=== PATIENT | male | born 1960 | race Hispanic/Latino ===

== ENCOUNTER 2023-10-21 21:40 | Inpatient (IN) | payer MEDICARE ==
[~2023-10-21] VITALS: Ht 175.3 cm; Wt 108.0 kg
[~2023-10-21 21:40] MED LIST: FLOMAX0.4 MG PO; LISINOPRIL10 MG PO
[2023-10-21 22:35] LABS: BASOPHILS % 0.4 % (0.0-1.0); EOSINOPHILS # (AUTO) 0.2 (0.0-0.4); EOSINOPHILS % 1.9 % (0.0-6.0); HEMATOCRIT 42.2 % (38.2-49.6); HEMOGLOBIN 13.8 g/dL (14.0-18.0); LYMPHOCYTES # (AUTO) 3.3 (1.0-3.2); LYMPHOCYTES % 35.7 % (18.0-39.1); MEAN CORPUSCULAR HEMOGLOBIN 28.6 pg (28-32); MEAN CORPUSCULAR HGB CONC 32.7 g/dL (31-35); MEAN CORPUSCULAR VOLUME 87.6 fL (81-99); MONOCYTES # (AUTO) 0.6 (0.2-0.8); MONOCYTES % 6.4 % (4.4-11.3); NEUTROPHILS # (AUTO) 5.1 (2.1-6.9); NEUTROPHILS % 55.3 % (38.7-80.0); PLATELET COUNT 242 x10e3/uL (140-360); RED BLOOD COUNT 4.82 x10e6/uL (4.3-5.7); RED CELL DISTRIBUTION WIDTH 14.1 % (11.7-14.4); WHITE BLOOD COUNT 9.28 x10e3/uL (4.8-10.8)
[2023-10-21] MEDS: ONDANSETRON HCL INJ 2MG/ML 2ML 2 MG/ML VIAL IV PRN (22:36)
[2023-10-21] MEDS: SODIUM CHLORIDE 0.9% 1000ML 1,000 ML IV SCH (22:37)
[2023-10-21] MEDS: Morphine 4mg INJECTION 4 MG/ML INJ IV PRN (22:37)
[2023-10-21] MEDS ORDERED: SODIUM CHLORIDE 0.9% 1000ML 1,000 ML IV SCH (22:45)
[2023-10-21 22:54] LABS: ALBUMIN 3.8 g/dL (3.5-5.0); ANION GAP 16.3 mmol/L (8-16); BILIRUBIN,TOTAL 0.6 mg/dL (0.2-1.2); CALCIUM 9.6 mg/dL (8.4-10.2); CREATININE, SERUM 1.01 mg/dL (0.72-1.25); POTASSIUM 4.3 mmol/L (3.5-5.1); TOTAL PROTEIN 7.5 g/dL (6.5-8.1)
[2023-10-21 23:36] LABS: BILIRUBIN,URINE NEGATIVE (NEGATIVE); CLARITY,URINE CLEAR (CLEAR); COLOR,URINE YELLOW (YELLOW); GLUCOSE, URINE NEGATIVE (NEGATIVE); KETONES,URINE NEGATIVE (NEGATIVE); LEUKOCYTE ESTERASE ,URINE NEGATIVE (NEGATIVE); NITRITE,URINE NEGATIVE (NEGATIVE); PH,URINE 5.5 (5 - 7); PROTEIN,URINE DIPSTICK NEGATIVE (NEGATIVE); URINE UROBILINOGEN 0.2 mg/dL (0.2 - 1)
[2023-10-21 23:51] LABS: BACTERIA,URINE MANY /HPF; EPITHELIAL CELLS,URINE FEW /LPF; WBC,URINE (MAN) 0-5 /HPF (0-5)
[2023-10-22] VITALS (11 sets, daily range): BP systolic 121–170; BP diastolic 64–108; PULSE 71–108; RESP 16–21; TEMP 97.5–98.6; O2SAT 93–100
[2023-10-22] MEDS ORDERED: FINASTERIDE5 MG PO (00:43)
[2023-10-22] MEDS: SOD PHOSPHATE/SOD BIPHOSPHATE ENEMA 132 ML BTL PR ONE (00:56)
[2023-10-22] MEDS ORDERED: ACETAMINOPHEN 1000 MG/100 ML 100 ML IV ONE (06:37)
[2023-10-22 07:32] LABS: BASOPHILS % 0.4 % (0.0-1.0); EOSINOPHILS # (AUTO) 0.2 (0.0-0.4); EOSINOPHILS % 2.1 % (0.0-6.0); HEMATOCRIT 40.5 % (38.2-49.6); HEMOGLOBIN 13.4 g/dL (14.0-18.0); LYMPHOCYTES # (AUTO) 3.4 (1.0-3.2); LYMPHOCYTES % 40.8 % (18.0-39.1); MEAN CORPUSCULAR HEMOGLOBIN 28.7 pg (28-32); MEAN CORPUSCULAR HGB CONC 33.1 g/dL (31-35); MEAN CORPUSCULAR VOLUME 86.7 fL (81-99); MONOCYTES # (AUTO) 0.5 (0.2-0.8); MONOCYTES % 6.1 % (4.4-11.3); NEUTROPHILS # (AUTO) 4.2 (2.1-6.9); NEUTROPHILS % 50.4 % (38.7-80.0); PLATELET COUNT 208 x10e3/uL (140-360); RED BLOOD COUNT 4.67 x10e6/uL (4.3-5.7); RED CELL DISTRIBUTION WIDTH 14.2 % (11.7-14.4); WHITE BLOOD COUNT 8.41 x10e3/uL (4.8-10.8)
[2023-10-22 07:45] LABS: ANION GAP 13.2 mmol/L (8-16); CALCIUM 8.8 mg/dL (8.4-10.2); CREATININE, SERUM 0.92 mg/dL (0.72-1.25); POTASSIUM 4.2 mmol/L (3.5-5.1)
[2023-10-22] MEDS: HYDRALAZINE HCL 20 MG/ML VIAL IV PRN (08:04)
[2023-10-22] MEDS: LISINOPRIL 10 MG TAB PO SCH (08:45)
[2023-10-22] MEDS: FINASTERIDE 5 MG TAB PO SCH (08:46)
[2023-10-22] MEDS ORDERED: IOPAMIDOL 610MG/1ML 300 MG/ML VIAL IV ONE (09:00)
[2023-10-22] MEDS: FENTANYL CITRATE/PF 100MCG/2 ML INJ ONE (11:53)
[2023-10-22] MEDS ORDERED: ONDANSETRON HCL INJ 2MG/ML 2ML 2 MG/ML VIAL IV PRN (12:00)
[2023-10-22] MEDS ORDERED: ACETAMINOPHEN 1000 MG/100 ML IV PRN (12:00)
[2023-10-22] MEDS ORDERED: DIPHENHYDRAMINE HCL 25 MG CAP PO PRN (12:00)
[2023-10-22] MEDS: PHENAZOPYRIDINE HCL 100 MG TAB PO PRN (13:24)
[2023-10-22] MEDS: ACETAMINOPHEN/CODEINE 300MG - 30MG TAB PO PRN (13:25)
[2023-10-22] MEDS: CEFTRIAXONE 2 GM in SODIUM CHLORIDE 0.9% 100 ML IV ONE (13:44)
[2023-10-22] MEDS: GENTAMICIN 80MG/NS 100 ML 100 ML IV ONE ×2 (13:44)
[2023-10-22] MEDS ORDERED: FENTANYL CITRATE/PF 100MCG/2 ML INJ ONE (13:57)
[2023-10-22] MEDS ORDERED: PHENYLEPHRINE HCL 1% 10 MG/ML VIAL ONE (16:53)
[2023-10-22] MEDS ORDERED: PROPOFOL IV EMULSION 10 MG/ML 20 ML VIAL ONE (16:53)
[2023-10-22] MEDS ORDERED: DEXAMETHASONE SOD PHOS INJ 4 MG/ML SDV ONE (16:53)
[2023-10-22] MEDS ORDERED: ONDANSETRON HCL INJ 2MG/ML 2ML 2 MG/ML VIAL ONE (16:53)
[2023-10-22] MEDS ORDERED: EPHEDRINE SULFATE INJ 50 MG/ML VIAL ONE (16:53)
[2023-10-22] MEDS ORDERED: SEVOFLURANE INHAL SOLN 250 ML PEN BTL ONE (16:53)
[2023-10-22] MEDS ORDERED: LIDOCAINE HCL 2% LOCAL INJ 5 ML SDV VIAL INJ ONE (16:53)
[2023-10-22] MEDS: SENNA-S TABLET PO SCH (16:59)
[2023-10-22] MEDS: TAMSULOSIN HCL 0.4 MG CAP PO SCH (16:59)
[2023-10-22] MEDS: SODIUM CHLORIDE 0.9% 1000ML 1,000 ML IV SCH (17:08)
[2023-10-23] VITALS (10 sets, daily range): BP systolic 130–158; BP diastolic 60–100; PULSE 83–92; RESP 16–20; TEMP 97.7–98.7; O2SAT 96–100
[2023-10-23 06:06] LABS: BASOPHILS % 0.1 % (0.0-1.0); HEMATOCRIT 38.8 % (38.2-49.6); HEMOGLOBIN 12.9 g/dL (14.0-18.0); LYMPHOCYTES # (AUTO) 1.5 (1.0-3.2); LYMPHOCYTES % 14.4 % (18.0-39.1); MEAN CORPUSCULAR HEMOGLOBIN 28.8 pg (28-32); MEAN CORPUSCULAR HGB CONC 33.2 g/dL (31-35); MEAN CORPUSCULAR VOLUME 86.6 fL (81-99); MONOCYTES # (AUTO) 0.6 (0.2-0.8); MONOCYTES % 5.6 % (4.4-11.3); NEUTROPHILS # (AUTO) 8.3 (2.1-6.9); NEUTROPHILS % 79.3 % (38.7-80.0); PLATELET COUNT 234 x10e3/uL (140-360); RED BLOOD COUNT 4.48 x10e6/uL (4.3-5.7); RED CELL DISTRIBUTION WIDTH 14.2 % (11.7-14.4); WHITE BLOOD COUNT 10.49 x10e3/uL (4.8-10.8)
[2023-10-23 07:05] LABS: ANION GAP 15.6 mmol/L (8-16); CREATININE, SERUM 1.2 mg/dL (0.72-1.25); POTASSIUM 4.6 mmol/L (3.5-5.1)
[2023-10-23] MEDS ORDERED: MIDAZOLAM HCL 2 MG/2 ML VIAL ONE (14:59)
[2023-10-23] MEDS ORDERED: FENTANYL CITRATE/PF 100MCG/2 ML INJ ONE (14:59)
[2023-10-23] MEDS: HYDRALAZINE HCL 20 MG/ML VIAL IV PRN (21:00)
[2023-10-24 04:40] VITALS: BP 135/97; PULSE 83; RESP 20; TEMP 98.3; O2SAT 100
[2023-10-24 05:44] LABS: BASOPHILS % 0.4 % (0.0-1.0); EOSINOPHILS # (AUTO) 0.1 (0.0-0.4); EOSINOPHILS % 0.9 % (0.0-6.0); HEMATOCRIT 38.2 % (38.2-49.6); HEMOGLOBIN 12.4 g/dL (14.0-18.0); LYMPHOCYTES # (AUTO) 2.8 (1.0-3.2); LYMPHOCYTES % 31.7 % (18.0-39.1); MEAN CORPUSCULAR HEMOGLOBIN 28.2 pg (28-32); MEAN CORPUSCULAR HGB CONC 32.5 g/dL (31-35); MONOCYTES # (AUTO) 0.6 (0.2-0.8); MONOCYTES % 7.2 % (4.4-11.3); NEUTROPHILS # (AUTO) 5.3 (2.1-6.9); NEUTROPHILS % 58.9 % (38.7-80.0); PLATELET COUNT 224 x10e3/uL (140-360); RED BLOOD COUNT 4.39 x10e6/uL (4.3-5.7); RED CELL DISTRIBUTION WIDTH 14.7 % (11.7-14.4); WHITE BLOOD COUNT 8.92 x10e3/uL (4.8-10.8)
[2023-10-24 06:27] LABS: ANION GAP 12.2 mmol/L (8-16); CALCIUM 8.7 mg/dL (8.4-10.2); CREATININE, SERUM 0.99 mg/dL (0.72-1.25); POTASSIUM 4.2 mmol/L (3.5-5.1)
[2023-10-24 08:56] VITALS: BP 148/103; PULSE 79; RESP 17; TEMP 98; O2SAT 99
[2023-10-24 08:58] VITALS: BP 148/103; PULSE 79; RESP 17; TEMP 98; O2SAT 99
[2023-10-24 12:00] VITALS: BP 164/102; PULSE 77; RESP 18; TEMP 98.2; O2SAT 100
[2023-10-24] MEDS ORDERED: IOPAMIDOL 610MG/1ML 300 MG/ML VIAL IV ONE (13:13)
[2023-10-24] MEDS ORDERED: SUFENTANIL CITRATE 50 MCG/ML AMP ONE (14:58)
[2023-10-24] MEDS ORDERED: SUGAMMADEX SODIUM 200 MG/2 ML VIAL IV ONE (14:59)
[2023-10-24] MEDS: FENTANYL CITRATE/PF 100MCG/2 ML INJ ONE (15:21)
[2023-10-24] MEDS: ONDANSETRON HCL 4 MG ORAL DISINTEGRATING TAB PO PRN (16:36)
[2023-10-24] MEDS ORDERED: SEVOFLURANE INHAL SOLN 250 ML PEN BTL ONE (17:50)
[2023-10-24] MEDS ORDERED: NEOSTIGMINE 1 MG/ML 10ML VIAL ONE (17:50)
[2023-10-24] MEDS ORDERED: GLYCOPYRROLATE INJ 0.2 MG/ML VIAL ONE (17:50)
[2023-10-24] MEDS ORDERED: LIDOCAINE HCL 2% LOCAL INJ 5 ML SDV VIAL INJ ONE (17:50)
[2023-10-24] MEDS ORDERED: ROCURONIUM BROMIDE 10 MG/ML 5ML VIAL IV ONE (17:50)
[2023-10-24] MEDS ORDERED: LABETALOL HCL 5 MG/ML 20ML VIAL ONE (17:50)
[2023-10-24] MEDS ORDERED: PROPOFOL IV EMULSION 10 MG/ML 20 ML VIAL ONE (17:50)
[2023-10-24 20:00] VITALS: BP 140/95; PULSE 97; RESP 21; TEMP 98.5; O2SAT 99
[2023-10-25] VITALS (9 sets, daily range): BP systolic 124–160; BP diastolic 75–99; PULSE 83–98; RESP 17–20; TEMP 98.6–99.5; O2SAT 95–100
[2023-10-25 06:47] LABS: BASOPHILS % 0.2 % (0.0-1.0); EOSINOPHILS # (AUTO) 0.1 (0.0-0.4); EOSINOPHILS % 0.8 % (0.0-6.0); HEMATOCRIT 37.8 % (38.2-49.6); HEMOGLOBIN 11.5 g/dL (14.0-18.0); LYMPHOCYTES # (AUTO) 1.9 (1.0-3.2); LYMPHOCYTES % 18.9 % (18.0-39.1); MEAN CORPUSCULAR HGB CONC 30.4 g/dL (31-35); MONOCYTES # (AUTO) 0.7 (0.2-0.8); MONOCYTES % 7.4 % (4.4-11.3); NEUTROPHILS # (AUTO) 7.2 (2.1-6.9); PLATELET COUNT 203 x10e3/uL (140-360); RED BLOOD COUNT 4.11 x10e6/uL (4.3-5.7); RED CELL DISTRIBUTION WIDTH 14.9 % (11.7-14.4); WHITE BLOOD COUNT 9.98 x10e3/uL (4.8-10.8)
[2023-10-25 07:21] LABS: CALCIUM 8.5 mg/dL (8.4-10.2); CREATININE, SERUM 1.1 mg/dL (0.72-1.25)
[2023-10-25] MEDS ORDERED: INDOMETHACIN 25 MG CAP PO PRN (12:15)
[2023-10-25] MEDS: LISINOPRIL 10 MG TAB PO SCH (16:44)
[2023-10-25] MEDS: COLCHICINE 0.6 MG TAB PO SCH (16:44)
[2023-10-26] VITALS (8 sets, daily range): BP systolic 134–172; BP diastolic 67–99; PULSE 80–99; RESP 17–20; TEMP 97.9–98.8; O2SAT 95–98
[2023-10-26 07:39] LABS: ANION GAP 13.6 mmol/L (8-16); CALCIUM 8.6 mg/dL (8.4-10.2); CREATININE, SERUM 0.91 mg/dL (0.72-1.25); POTASSIUM 3.6 mmol/L (3.5-5.1)
[2023-10-26 07:50] LABS: BASOPHILS % 0.3 % (0.0-1.0); EOSINOPHILS # (AUTO) 0.2 (0.0-0.4); EOSINOPHILS % 1.8 % (0.0-6.0); HEMATOCRIT 34.7 % (38.2-49.6); HEMOGLOBIN 11.2 g/dL (14.0-18.0); LYMPHOCYTES # (AUTO) 2.3 (1.0-3.2); LYMPHOCYTES % 22.4 % (18.0-39.1); MEAN CORPUSCULAR HEMOGLOBIN 28.8 pg (28-32); MEAN CORPUSCULAR HGB CONC 32.3 g/dL (31-35); MEAN CORPUSCULAR VOLUME 89.2 fL (81-99); MONOCYTES # (AUTO) 0.7 (0.2-0.8); MONOCYTES % 6.5 % (4.4-11.3); NEUTROPHILS # (AUTO) 7.1 (2.1-6.9); NEUTROPHILS % 68.5 % (38.7-80.0); PLATELET COUNT 207 x10e3/uL (140-360); RED BLOOD COUNT 3.89 x10e6/uL (4.3-5.7); RED CELL DISTRIBUTION WIDTH 14.8 % (11.7-14.4); WHITE BLOOD COUNT 10.37 x10e3/uL (4.8-10.8)
[2023-10-26] MEDS: METHYLPREDNISOLONE SOD SUCC 40 MG/ML VIAL 1ML IV SCH (16:14)
[2023-10-26] MEDS: ALLOPURINOL 100 MG TAB PO SCH (16:19)
[2023-10-26 17:44] LABS: CHOL/HDL RATIO 7.6 (3.9-4.7)
[2023-10-27] VITALS (7 sets, daily range): BP systolic 143–176; BP diastolic 84–98; PULSE 86–105; RESP 18–21; TEMP 97.8–98.9; O2SAT 95–100
[2023-10-27] MEDS: SODIUM CHLORIDE 0.9% 1000ML 1,000 ML IV SCH (15:37)
[2023-10-28] VITALS: BP 139/67; PULSE 95; RESP 20; TEMP 97.4; O2SAT 98
[2023-10-28 04:00] VITALS: BP 155/96; PULSE 96; RESP 18; TEMP 97.7; O2SAT 100
[2023-10-28 08:00] VITALS: BP 155/96; PULSE 96; RESP 18; TEMP 97.7; O2SAT 100
[2023-10-28] MEDS ORDERED: MAGNESIUM HYDROXIDE 30 ML UDC PO PRN (08:45)
[2023-10-28] MEDS ORDERED: COLCHICINE 0.6 MG TAB PO PRN (08:45)
[2023-10-28 09:00] VITALS: BP 142/95; PULSE 96; RESP 18; TEMP 98.3; O2SAT 94
[2023-10-28] MEDS ORDERED: Morphine 4mg INJECTION 4 MG/ML INJ IV PRN (10:15)
[2023-10-28] MEDS: MAGNESIUM HYDROXIDE 30 ML UDC PO ONE (11:35)
[2023-10-28 11:50] VITALS: BP 148/92; PULSE 88; RESP 19; TEMP 98.1; O2SAT 98
[2023-10-28] MEDS: ACETAMINOPHEN/CODEINE 300MG - 30MG TAB PO PRN (13:37)
[2023-10-28 16:22] VITALS: BP 154/99; PULSE 83; RESP 18; TEMP 98; O2SAT 100
== END 2023-10-28 16:36 | disposition home or self-care (01) | DRG 666 ==
LOC: ER 21:53 → ERHOLD 22:43 → MED/SURG3 10-22 00:06 → MED/SURG2 10-24 15:45
PROVIDERS: ADMIT Internal Medicine; ATTEND Internal Medicine
PROC: 0DJD8ZZ Inspection of Lower Intestinal Tract, Via Natural or Artificial Opening Endoscopic (ICD-10-PCS; 2023-10-22)
PROC: 0VB03ZX Excision of Prostate, Percutaneous Approach, Diagnostic (ICD-10-PCS; 2023-10-22)
PROC: 0T788ZZ Dilation of Bilateral Ureters, Via Natural or Artificial Opening Endoscopic (ICD-10-PCS; 2023-10-22)
PROC: BT141ZZ Fluoroscopy of Kidneys, Ureters and Bladder using Low Osmolar Contrast (ICD-10-PCS; 2023-10-22)
PROC: 0TCB8ZZ Extirpation of Matter from Bladder, Via Natural or Artificial Opening Endoscopic (ICD-10-PCS; 2023-10-22 09:13)
PROC: 0VB08ZZ Excision of Prostate, Via Natural or Artificial Opening Endoscopic (ICD-10-PCS; 2023-10-24)
PROC: 0T9B70Z Drainage of Bladder with Drainage Device, Via Natural or Artificial Opening (ICD-10-PCS; principal; 2023-10-28)
DX: N21.0 Calculus in bladder (principal); N13.8 Other obstructive and reflux uropathy; N39.0 Urinary tract infection, site not specified; Z87.442 Personal history of urinary calculi; N20.0 Calculus of kidney; I10 Essential (primary) hypertension; N40.1 Benign prostatic hyperplasia with lower urinary tract symptoms; Z11.52 Encounter for screening for COVID-19; E66.9 Obesity, unspecified; Z68.35 Body mass index [BMI] 35.0-35.9, adult; R31.29 Other microscopic hematuria; D64.9 Anemia, unspecified; M10.9 Gout, unspecified; N41.1 Chronic prostatitis; N32.89 Other specified disorders of bladder
CPT/HCPCS: 36415; 74420; 80048; 80053; 80061; 81001; 83036; 84550; 85025; 87086; 88300; 88305; 88307; 94799; 99252; 99284; C1758; J0360; J0696; J1100; J1580; J2001; J2250; J2270; J2371; J2405; J2710; J2919; J7030; J7050; Q0162; U0002